=== PATIENT | male | born 1955 | race Hispanic/Latino ===

== ENCOUNTER 2022-10-08 06:40 | Day surgery (SDC) | payer OTHER ==
--- NOTE | 2022-10-04 20:17 | RAD REPORT ---
EXAM DESCRIPTION: [facility] And Lat (2 Views)10/04/2022 4:27 pm CLINICAL HISTORY: pre op pending cholecystectomy/hernia repair COMPARISON: CHEST PA AND LAT 2 VIEW dated 07/24/2010; CHEST PA AND LAT 2 VIEW dated 10/15/2003 TECHNIQUE: PA and lateral views of the chest. FINDINGS: The lungs are clear. No pneumothorax or effusion. The cardiomediastinal contours are unre markable. IMPRESSION: No acute cardiopulmonary process.
[2022-10-08] MEDS ORDERED: Ringers Lactate 1,000 ML IV ONE (07:07)
[2022-10-08] MEDS ORDERED: dexAMETHasone 10 MG/ML VIAL ONE (07:58)
[2022-10-08] MEDS ORDERED: LIDOCAINE 2% MPF 5 ML VIAL ONE (07:58)
[2022-10-08] MEDS ORDERED: propofoL 200 MG/20 ML VIAL IV ONE (07:58)
[2022-10-08] MEDS ORDERED: ROCURONIUM 50 MG/5 ML VIAL IV ONE (07:58)
[2022-10-08] MEDS ORDERED: FENTANYL CITR 100 MCG/2 ML ONE ×2 (08:00→09:28)
[2022-10-08] MEDS ORDERED: MIDAZOLAM HCL 2 MG/2 ML INJ ONE (08:00)
[2022-10-08] MEDS ORDERED: SUCCINYLCHOLINE 20 MG/ML (10 ML) IV ONE (08:06)
[2022-10-08] MEDS ORDERED: SUGAMMADEX SODIUM 200 MG/2 ML VIAL IV ONE (08:06)
[2022-10-08] MEDS ORDERED: CIPROFLOXACIN 400mg IV 400 MG/200 ML BAG IV ONE (08:40)
[2022-10-08] MEDS ORDERED: EPHEDRINE SULF 50 MG/ML VIAL ONE (08:55)
[2022-10-08] MEDS ORDERED: ONDANSETRON 4 MG/2 ML VIAL ONE (09:31)
--- NOTE | 2022-10-08 09:49 | P.BOP ---
Preoperative diagnosis: Acute cholecystitis, symptomatic cholelithiasis, tender umbilical hernia Postoperative diagnosis: same, Primary procedure: 1. Laparoscopic cholecystectomy Secondary procedure: 2. Open repair of umbilical hernia Roofer Metal: TERA GEIGER (TEST DRILLER) Estimated blood loss: <10cc Specimen: gb, hernia sac Findings: as above Anesthesia: General Complications: None Transferred to: Recovery Room Condition: Good
[2022-10-08] MEDS ORDERED: KETOROLAC 30 MG/ML INJ ONE (10:15)
--- NOTE | 2022-10-08 10:21 | EKG ---
Test Date: 2022-10-04 Test Time: 16:15:01 Histotechnologist: LIZBETH MEASUREMENT RESULTS: Intervals: Rate: 53 GA: 262 QRSD: 90 QT: 436 QTc: 409 [place]: P: 57 GA: 262 QRS: 22 T: 69 INTERPRETIVE STATEMENTS: Sinus bradycardia with 1st degree AV block Otherwise normal ECG Compared to ECG 02/14/2022 08:32:36 Sinus rhythm no longer present Electronically Signed On 10-08-22 10:14:32 CDT by Parth Tinsley
[2022-10-08] MEDS ORDERED: HYDROCODONE/APAP 10/325 TAB PO ONE (10:55)
[2022-10-08] MEDS ORDERED: HYDROCODONE/APAP 10/325 TAB ONE (11:07)
[2022-10-08 11:30] VITALS: BP 134/67; TEMP 97.3; O2SAT 96
--- NOTE | 2022-10-08 14:52 | OP ---
Date of Procedure: 10/08/2022 Surgeon: Vu Sebastian MD Head Cd Reactor Operator: Natalia De Souza. Preoperative Diagnoses: Acute cholecystitis, symptomatic cholelithiasis, and tender umbilical hernia . Postoperative Diagnoses: Acute cholecystitis, symptomatic cholelithiasis, and tender umbilical herni a. Procedures: 1.Laparoscopic cholecystectomy. 2.Open repair of umbilical hernia. Estimated Blood Loss: Less than 10 mL. Specimen: Gallbladder, hernia sac. Anesthesia: General plus local. Indication: This is the case of a 67-year-old patient, who comes to us with above diagnosis. Fully explained the benefits, alternatives, and risks of laparoscopic cholecystectomy and repair of tender umbilical hernia, which include, but not limited to infection, bleeding, damage to adjacent structure s, anesthesia complication, recurrence, MD, and even . He also understands this may not relieve any symptoms. He might need more than one surgical intervention. He understood, signed a consent. Procedure In Detail: The patient was brought to the operating room, placed in supine position. Anes thesia was done without complication. Abdominal area was prepped and draped in the usual sterile fas hion. Marcaine 0.5% was injected for local anesthetic followed by sharp incision of the skin in the infraumbilical region. The incision was carried down to fascia, which was opened under direct vision . Peritoneum was encountered, opened under direct vision. Vicryl #1 placed inside the fascia. Xavier on trocar was carefully introduced. Pneumoperitoneum was obtained. I noted the patient has umbilica l hernia, so just we added the umbilical hernia repair. We did incision on the periumbilical region. We identified the umbilical content and the hernia sac was carefully removed. Fascial edges were c leaned. After that, we were able to put Vicryl #1 in a khdbrt-ii-hnewp fashion around the area of th e umbilical region and a new incision for the umbilical hernia. Krissy trocar was carefully introduc ed. Pneumoperitoneum was obtained. I placed 3 more trocars, 5 mm each one of them in the epigastric right upper quadrant area under direct visualization. This allowed me to put a grasper in the fundu s of the gallbladder, another grasper in the infundibulum, retracting the gallbladder in the inferola teral fashion exposing the triangle of Calot, and obtaining critical view. Cystic duct and cystic ar mauro were clearly isolated, freed circumferentially and a connection between those and the gallbladde r were clearly identified. I proceeded to ligate those by using at least 3 clips proximal, 1 clip di stal, ligation in the middle. Same was done with the cystic artery. A small little branch of the cy stic artery was also ligated using same technique. Hepatic arteries and common bile duct were protec jennifer at all times. The gallbladder was removed from liver using Bovie cauterizer and removed from abd ominal cavity using EndoCatch through the umbilical incision. The area was inspected once again. No bile leak. No bleeding. At that moment, I proceeded to remove the trocars under direct vision. De flated the pneumoperitoneum. Closed the fascia with #1 Vicryl and closed the umbilical hernia with # 1 Vicryl in a bamkeu-fu-nbsrx fashion. The area was irrigated. Hemostasis was obtained. Then, afte r that, put local anesthetic and closed the subcutaneous tissue with 3-0 chromic and the skin in a franz bcuticular fashion with 3-0 chromic and Steri-Strips on top. Sponge count, instrument counts correct . The patient tolerated the procedure well. The patient was sent to recovery in stable condition. LEIGH ANN/PAUL Voice ID: [id number] Report ID: [id number]
--- NOTE | 2022-10-08 14:52 | DS ---
Date of Discharge: 10/08/2022 Diagnoses: Symptomatic cholelithiasis, acute cholecystitis, tender umbilical hernia. Procedures: Laparoscopic cholecystectomy and umbilical hernia repair. Disposition: Home. Activity: As tolerated. No heavy lifting. Plan: Follow up in my office in 1 week. Call for appointment at [phone]. Keep area dry for 48 jeannie rs, then may shower. Keep Steri-Strips intact. LEIGH ANN/PAUL Voice ID: [id number] Report ID: [id number]
== END 2022-10-08 11:20 | disposition home or self-care (01) ==
LOC: OR 06:40
PROVIDERS: ATTEND Surgery
PROC: 0FT44ZZ Resection of Gallbladder, Percutaneous Endoscopic Approach (ICD-10-PCS; principal; 2022-10-08 08:30)
PROC: 0WQF0ZZ Repair Abdominal Wall, Open Approach (ICD-10-PCS; 2022-10-08 08:30)
DX: K80.12 Calculus of gallbladder with acute and chronic cholecystitis without obstruction (principal); K42.9 Umbilical hernia without obstruction or gangrene; K21.9 Gastro-esophageal reflux disease without esophagitis; E66.9 Obesity, unspecified; Z68.35 Body mass index [BMI] 35.0-35.9, adult; Z88.0 Allergy status to penicillin
CPT/HCPCS: 93005; 36415; 88302; 88304; 83690; 71046; 47562; 49591; J2704; J2001; J2250; J3010 ×2; J1100; J2405; J0744; J7120